=== PATIENT | female | born 1995 | race American Indian/Alaskan Native ===

== ENCOUNTER 2016-10-05 22:45 | Inpatient (IN) | payer MEDICAID, OTHER ==
--- NOTE | 2016-10-05 23:24 | ED PDOC ---
HPI: Psych/Substance Abuse Time Seen by Provider: 10/05/16 22:55 Chief Complaint (Nursing): Psychiatric Evaluation Chief Complaint (Provider): crisis eval History Per: Patient History/Exam Limitations: no limitations Onset/Duration Of Symptoms: Days Current Symptoms Are (Timing): Still Present Suicide/Self Injury Attempted (Context): Ingestion Additional History Per: Patient Additional Complaint(s): 21 y/o female no past medical history self-presents for crisis eval. Patient states she has been depressed for the last couple of months, tonight after having a fight with her mother she had suicidal thoughts with plan to take pills and drink alcohol. Patient states she took 6 "zquil" pills at 22:20, because she wanted to go to sleep. Denies homicidal ideations, hallucinations, acute medical complaints. Past Medical History Reviewed: Historical Data, Nursing Documentation, Vital Signs Vital Signs: Last Vital Signs Temp 99.5 F 10/05/16 22:49 Pulse 103 H 10/05/16 22:49 Resp 16 10/05/16 22:49 BP 126/91 H 10/05/16 22:49 Pulse Ox 100 10/05/16 22:49 - Medical History PMH: Anxiety, Depression - Family History Family History: States: No Known Family Hx - Allergies Allergies/Adverse Reactions: Allergies Allergy/AdvReac Type Severity Reaction Status Date / Time Penicillins Allergy RASH Verified 10/05/16 22:49 Review of Systems ROS Statement: Except As Marked, All Systems Reviewed And Found Negative Psych: Positive for: Depression, Suicidal ideation Physical Exam - Reviewed Nursing Documentation Reviewed: Yes Vital Signs Reviewed: Yes - Physical Exam Appears: Positive for: Well, Non-toxic, No Acute Distress Head Exam: Positive for: ATRAUMATIC, NORMAL INSPECTION, NORMOCEPHALIC Skin: Positive for: Normal Color Eye Exam: Positive for: Normal appearance, EOMI, PERRL ENT: Positive for: Normal ENT Inspection Cardiovascular/Chest: Positive for: Regular Rate, Rhythm Respiratory: Positive for: Normal Breath Sounds Gastrointestinal/Abdominal: Positive for: Normal Exam Back: Positive for: Normal Inspection Extremity: Positive for: Normal ROM Neurologic/Psych: Positive for: Alert, Oriented - Laboratory Results Result Diagrams: 10/05/16 23:40 10/05/16 23:40 - ECG ECG: Positive for: Viewed By Me (reviewed by ED attending) ECG Rhythm: Positive for: Sinus Rhythm O2 Sat by Pulse Oximetry: 100 - Progress ED Course And Treament: labs, urine, ekg poison control contacted by RN; recommends watching for tachycardia, dilated pupils, and skin flushing. 1:30 Patient sleeping; vitals stable. Denies acute complains upon awakening. PERRLA. Crisis eval ordered Medical Decision Making Medical Decision Making: Patient medically stable for psych admission. Disposition - Clinical Impression Clinical Impression: Depression - Patient ED Disposition Is Patient to be Admitted: Yes - Disposition Disposition Time: 02:24 Condition: STABLE
[2016-10-05 23:43] LABS: BASO # 0.1 K/uL (0.0-0.2); BASO % 0.9 % (0.0-2.0); EOS # 0.1 K/uL (0.0-0.7); EOS % 1.1 % (0.0-4.0); HEMATOCRIT 36.7 % (34.0-47.0); LYMPH # 2.2 K/uL (1.0-4.3); LYMPH % 25.4 % (20.0-40.0); MEAN CELL VOLUME 82.2 fl (81.0-99.0); MEAN CORPUSCULAR HEMOGLOBIN 27.3 pg (27.0-31.0); MEAN CORPUSCULAR HGB CONC 33.3 g/dL (33.0-37.0); MEAN PLATELET VOLUME 8.7 fl (7.2-11.7); MONO # 0.7 K/uL (0.0-0.8); MONO % 7.9 % (0.0-10.0); NEUT # 5.6 K/uL (1.8-7.0); NEUT % 64.7 % (50.0-75.0); RED CELL DISTRIBUTION WIDTH 13.7 % (11.5-14.5); WHITE BLOOD COUNT 8.7 K/uL (4.8-10.8)
[2016-10-05 23:54] LABS: ALB/GLOB RATIO 1.3 (1.0-2.1); ALCOHOL SERUM < 10 mg/dl (0-10); ALKALINE PHOSPHATASE 67 U/L (38-126); ALT/SGPT 29 U/L (9-52); AST/SGOT 19 U/L (14-36); BILIRUBIN,TOTAL 0.1 mg/dl (0.2-1.3); BLOOD UREA NITROGEN 17 mg/dl (7-17); CALCIUM 9.6 mg/dL (8.4-10.2); CARBON DIOXIDE 23 mmol/L (22-30); CHLORIDE 104 mmol/L (98-107); GFR AFRICAN-AMERICAN > 60; GLUCOSE,RANDOM 93 mg/dL (65-105); POTASSIUM 3.8 MMOL/L (3.6-5.0); SODIUM 137 mmol/l (132-148); TOTAL PROTEIN 7.5 G/DL (6.3-8.2)
[2016-10-05 23:57] LABS: RBC URINE < 1 /hpf (0-3); URINE BILIRUBIN NEGATIVE (NEGATIVE); URINE BLOOD NEGATIVE (NEGATIVE); URINE COLOR YELLOW (YELLOW); URINE GLUCOSE (UA) NEG (Normal); URINE KETONE TRACE mg/dL (NEGATIVE); URINE LEUKOCYTE ESTERASE NEG Leu/uL (Negative); URINE PROTEIN NEGATIVE (NEGATIVE); URINE UROBILINOGEN 0.2-1.0 mg/dL (0.2-1.0); WBC URINE < 1 /hpf (0-5)
[2016-10-06] MEDS ORDERED: Alum-Mag Hydrox-Simethicone Susp (30 mL) PO PRN (03:46)
[2016-10-06] MEDS ORDERED: DiphenhydrAMINE 50 mg/ml Inj IM PRN (03:46)
[2016-10-06] MEDS ORDERED: Magnesium Hydroxide Susp 30 ml UD PO PRN (03:46)
--- NOTE | 2016-10-06 04:29 | PCM.BM ---
<DeandreNathaniel - Last Filed: 10/06/16 04:27> Treatment Plan Problems - Problems identified on initial assessmt Altered sleep pattern Date Initiated: 10/06/16 Time Initiated: 04: Assessment reference: NA Status: Active Hopelessness/Helplessness Date Initiated: 10/06/16 Time Initiated: 04:28 Assessment reference: NA Status: Active Treatment assets and liabiliti Patient Assests: adapts well, cooperative, self-reliant, ADL independent, good support system Patient Liabilities: relationship conflicts - Milieu Protocol Maintain good personal hygiene: daily Encourage regular showers, daily Remind patient to perform daily oral care Maintain personal safety: every shift Educate patient to report safety concerns to staff, every shift Monitor environment for contraband/sharps Medication safety: Monitor for expected outcome, potential side effects: every shift, Assess barriers to learning: every shift, Assess readiness for medication education: every shift Family Contact Family contact: Patient agrees to contact Family contact name: Krystin Glover [phone] Discharge/Continuing Care - Education Needs Education Needs: Patient Medication, Patient Diagnosis/Disease Process, Patient Coping Skills - Discharge Discharge Criteria: Tolerates medication w/o severe side effects, Free of Suicidal thoughts, Normal sleep pattern Discharge to:: Home <Debbie Bagley - Last Filed: 10/06/16 16:05> Treatment assets and liabiliti Patient Assests: adapts well, cooperative, educated, motivated, self-reliant, ADL independent, physically healthy, good support system, negotiates basic needs , cognitively intact, good interpersonal skills Patient Liabilities: relationship conflicts Family Contact Family involvement: Family/SO is involved Family contact: Patient agrees to contact Family contact name: Luz(sister) Family contacted how many times per week?: 1 Family contact comment: Patient has restricted mother from attending visitation hours and is currently not agreeable to having mother involved in treatment. Patient agreeable to having older sister contact to discuss patients progress on 3NP and discharge planning. However, patient does not know sisters contact information. Building Inspector provided patient with contact number for typewriter operator automatic and [employer] so that patients sister can contact staff. - Goals for Treatment Patient goals for treatment: Patient reports ambivalence regarding medication management and aftercare referrals. Patient to be encouraged to attend groups for development of coping skills and improvement in insight. Psychoeducation provided regarding benefits of medication management and compliance with aftercare to reduce risk of future hospitalizations and ensure safety in the community. Patient reports wanting to improve sleep and is agreeable to outpatient therapy referrals. Discharge/Continuing Care - Education Needs Education Needs: Family Medication, Family Diagnosis/Disease Process, Family Coping Skills, Family Community resources, Family Aftercare Safety Plan, Patient Medication, Patient Diagnosis/Disease Process, Patient Community resources, Patient Aftercare Safety Plan - Discharge Discharge Criteria: Tolerates medication w/o severe side effects, Free of Suicidal thoughts, Normal sleep pattern <Armin Singh - Last Filed: 10/07/16 10:31>
[2016-10-06 09:39] LABS: T4 10.3 ug/dl (5.5-11.0)
[2016-10-06 09:52] LABS: THYROID STIMULATING HORMONE 1.15 mIU/ML (0.46-4.68)
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
--- NOTE | 2016-10-06 11:24 | CP.PCM.CON ---
History of Present Illness - History of Present Illness History of Present Illness: Reason for Consult: per hospital protocol CC: SI HPI: 21 F no past medical history admitted to psych for suicidal ideations. Patient states she no longer feels this way. No other complaints at this time. HD stable, NAD. ROS: per HPI, 12 systems reviewed and negative PMH: denies PSH: denies FH: denies SH: denies tobacco, ETOH, IVDU Meds: as below Allergies: PCN Vitals: reviewed and currently stable Exam: GEN: WDWN, alert, cooperative HEENT: NCAT, PERRL, EOMI NECK: supple, no JVD, no lymphadenopathy CARDIAC: +S1S2 RRR LUNG: CTAB No WRR ABD: SOFT NT ND BSX4 NO MASSES NO HSM EXT: +pedal pulses, equal strength NEURO: AAOx3 SKIN warm, dry PSYCH normal mood, normal affect Labs: 10/05/16 23:40 10/05/16 23:40 Active Medications: 10/06/16 03:46 Acetaminophen [Tylenol 325mg tab] 650 mg PO Q4 PRN Aluminum Hydroxide/Magnesium [Maalox Plus 30 ml] 30 ml PO Q4 PRN DiphenhydrAMINE [Benadryl] 50 mg IM Q6 PRN DiphenhydrAMINE [Benadryl] 50 mg PO HS PRN DiphenhydrAMINE [Benadryl] 50 mg PO Q6 PRN Haloperidol Lactate [Haldol] 5 mg IM Q4 PRN Haloperidol [Haldol] 5 mg PO Q4 PRN LORazepam [Ativan] 2 mg IM Q4 PRN LORazepam [Ativan] 2 mg PO Q4 PRN Magnesium Hydroxide [Milk Of Magnesia] 30 ml PO HS PRN 10/06/16 17:00 lamoTRIgine [LaMICtal] 25 mg PO BID Assessment and Plan: 21 F no past medical history admitted to psych for suicidal ideations. Patient states she no longer feels this way. No other complaints at this time. HD stable , NAD. DEPRESSION WITH SI management per psychiatry team Past Patient History - Past Social History Smoking Status: Never Smoked - CARDIAC Hx Cardiac Disorders: No Hx Hypertension: No - PULMONARY Hx Respiratory Disorders: No Hx Tuberculosis: No - NEUROLOGICAL HX Cerebrovascular Accident: No Hx Seizures: No - HEENT Hx HEENT Problems: No - RENAL Hx Chronic Kidney Disease: No - ENDOCRINE/METABOLIC Hx Endocrine Disorders: No - HEMATOLOGICAL/ONCOLOGICAL Hx Blood Disorders: No Hx Cancer: No Hx Human Immunodeficiency Virus (HIV): No - INTEGUMENTARY Hx Dermatological Problems: No - MUSCULOSKELETAL/RHEUMATOLOGICAL Hx Musculoskeletal Disorders: No - GASTROINTESTINAL Hx Gastrointestinal Disorders: No - GENITOURINARY/GYNECOLOGICAL Hx Genitourinary Disorders: No Hx Sexually Transmitted Disorders: No - PSYCHIATRIC Hx Substance Use: No - SURGICAL HISTORY Hx Surgeries: No - ANESTHESIA Hx Anesthesia: No Meds Allergies/Adverse Reactions: Allergies Allergy/AdvReac Type Severity Reaction Status Date / Time Penicillins Allergy RASH Verified 10/05/16 22:49 - Medications Medications: Current Medications Acetaminophen (Tylenol 325mg Tab) 650 mg PO Q4 PRN PRN Reason: for pain 4-7 Al Hydrox/Mg Hydrox/Simethicone (Maalox Plus 30 Ml) 30 ml PO Q4 PRN PRN Reason: Dyspepsia Diphenhydramine HCl (Benadryl) 50 mg IM Q6 PRN PRN Reason: Extrapyramidal S/S Unable PO Diphenhydramine HCl (Benadryl) 50 mg PO Q6 PRN PRN Reason: Extrapyramidal Symptoms Diphenhydramine HCl (Benadryl) 50 mg PO HS PRN PRN Reason: Sleep Haloperidol (Haldol) 5 mg PO Q4 PRN PRN Reason: Agitation Haloperidol Lactate (Haldol) 5 mg IM Q4 PRN PRN Reason: Agitation, Unable to Take PO Lamotrigine (Lamictal) 25 mg PO BID AXEL Lorazepam (Ativan) 2 mg IM Q4 PRN PRN Reason: Anxiety/Agitation,Unable PO Lorazepam (Ativan) 2 mg PO Q4 PRN PRN Reason: Anxiety/Agitation Magnesium Hydroxide (Milk Of Magnesia) 30 ml PO HS PRN PRN Reason: Constipation Results - Vital Signs Recent Vital Signs: Last Vital Signs Temp 97.6 F 10/06/16 09:14 Pulse 80 10/06/16 09:14 Resp 18 10/06/16 09:14 BP 136/83 10/06/16 09:14 Pulse Ox 100 10/06/16 03:25 - Labs Result Diagrams: 10/05/16 23:40 10/05/16 23:40 Labs: Laboratory Results - last 24 hr 10/06/16 08:00 Triglycerides 72 Cholesterol 161 LDL Cholesterol Direct 94 HDL Cholesterol 37 Thyroxine (T4) 10.3 TSH 3rd Generation 1.15
--- NOTE | 2016-10-06 16:04 | CARD ---
APPROVED REPORT EKG Measurement Heart [id number] <Conclusion> Normal sinus rhythm Possible Left atrial enlargement Borderline ECG
--- NOTE | 2016-10-06 16:06 | CARD ---
APPROVED REPORT EKG Measurement Heart [id number] <Conclusion> Normal sinus rhythm Possible Left atrial enlargement Borderline ECG
--- NOTE | 2016-10-07 12:22 | PCM.PYCHPN ---
Psychiatric Progress Note - Psychiatric Progress Note Patient seen today, length of contact: in treatment team Patient Chief Complaint: it feel ok Problems Identified/Issues Discussed: pt took lamictal. denies any medication side effects. pt is calm. she attends groups. pt had family visit yesterday. she is willing to stay the weekend and try medications. Medication Change: No Medical Record Reviewed: Yes Mental Status Examination - Cognitive Function Orientation: Person, Place, Situation, Time Memory: Intact, Impaired Attention: WNL Concentration: WNL Association: WNL Fund of Knowledge: WN Decription of patient's judgement and insights: fair - Mood Mood: Depressed - Affect Affect: Constricted - Speech Speech: Appropriate - Formal Thought Process Formal Thought Process: No Impairment - Suicidal Ideation Suicidal Ideation: No - Homicidal Ideation Homicidal Ideation: No Goal/Treatment Plan - Goal/Treatment Plan Need for Continued Stay: Remain at risks for inpatient hospitalization, Severe functional impairment Progress Toward Problem(s) and Goals/Treatment Plan: bipolar 2 disorder continue current treatment encourage participation in groups disposition planning Estimated Date of D/C: 10/10/16
--- NOTE | 2016-10-08 10:08 | PCM.PYCHPN ---
Psychiatric Progress Note - Psychiatric Progress Note Patient seen today, length of contact: in treatment team Patient Chief Complaint: pt has been less depressed and less anxious and denies suicidal ideation .no side effects and tolerating lamictal Medication Change: No Medical Record Reviewed: Yes Mental Status Examination - Cognitive Function Orientation: Person, Place, Situation, Time Memory: Intact, Impaired Attention: WNL Concentration: WNL Association: WNL Fund of Knowledge: WNL - Mood Mood: Depressed - Affect Affect: Constricted - Speech Speech: Appropriate - Formal Thought Process Formal Thought Process: No Impairment - Suicidal Ideation Suicidal Ideation: No - Homicidal Ideation Homicidal Ideation: No Goal/Treatment Plan - Goal/Treatment Plan Need for Continued Stay: Remain at risks for inpatient hospitalization, Severe functional impairment Progress Toward Problem(s) and Goals/Treatment Plan: will titrate lamictal to stabilize the pt and intiate d/c planning Estimated Date of D/C: 10/10/16
[2016-10-09 17:51] VITALS: O2SAT 99
--- NOTE | 2016-10-10 09:55 | PCM.PYCHDC ---
Mental Status Examination - Mental Status Examination Orientation: Person, Place, Situation, Time Memory: Intact Mood: Neutral Affect: Broad Speech: Appropriate Attention: WNL Concentration: WNL Association: WNL Fund of Knowledge: WNL Formal Thought Process: No Impairment Description of patient's judgement and insight: fair Psychotic Thoughts and Behaviors: pt denies any a/v hallucinations Suicidal Ideation: No Current Homicidal Ideation?: No Plan: pt is denying any suicidal or homicidal thoughts/plans or intent Discharge Summary - Discharge Note Reason for Hospitalization: pt reported feeling angry having passive suicidal thoughts Psychiatric History (includes Medical, Family, Personal Hx): pt with no previous psychiatric treatment besides outpt therapy Consultations:: List each consultation separately and include: 1. Reason for request. 2. Findings. 3. Follow-up Consultations: seen by the hospitalist Summary of Hospital Course include:: 1. Description of specific treatment plan utilized for patients during their course of treatmen. 2. Summarize the time- course for resolution of acute symptoms and/or regressed behaviors. 3. Describe issues identified and worked on during hospitalization. 4. Describe medication utilized. 5. Describe medical problems identified and treated. 6. Reassessment of suicide risk Summary of Hospital Course: pt is 21 yo female, no prior psychiatric admissions. reports she has become more depressed over the last few months. she reports she is now having more frequent suicidal thoughts. she isolates from friends, has trouble sleeping, low energy, poor concentration and easily tearful. she is reporting that she also has periods where her mood becomes elevated, she takes risks, spends money and is sexually promiscuous. she reports her mood is irritable during this time and that she has reduced need for sleep during this time, which last about a week. after her period of elevated mood, she "crashes" and feels more depressed. she has never been arrested or hospitalized or attempted suicide. pt is in college. she lives with her mother, who she states has untreated mood problems. she has an older sister. hospital course pt was admitted to [facility] and oriented to the unit. pt placed on routine safety protocols. pt was started on lamictal to target her mood symptoms. pt attended groups and was adherent to medications. she had good family visits. her mood stabilized and she was agreeable to outpatient therapy. at the time of discharge the patient was denying suicidal or homicidal thoughts/plans or intent. - Final Diagnosis (DSM 5) Condition upon Discharge: STABLE DSM 5: bipolar 2 disorder Disposition: HOME/ ROUTINE Follow-up Treatment Plan: follow up with aftercare as directed take medications as prescribed do not use alcohol, tobacco or other illicit substances call 911 if any suicidal or homicidal thoughts, plans or intent Prescriptions/Medication Reconciliation: lamoTRIgine [Lamictal] 25 mg PO BID #30 tab - Smoking Cessation Smoking Cessation Medication prescribed: No - Antipsychotic Medications Pt discharged on 2 or more routine antipsychotic medications: No
[2016-10-10 12:18] VITALS: BP 110/56; PULSE 98; RESP 20; TEMP 97.9
== END 2016-10-10 12:33 | disposition home or self-care (01) | DRG 430 ==
LOC: H.ER 22:45 → H.ERHOLD 10-06 02:12 → H.PSYCH 10-06 03:34
PROVIDERS: ADMIT Psychiatry & Neurology Psychiatry; ATTEND Psychiatry & Neurology Psychiatry
PROC: GZHZZZZ Group Psychotherapy (ICD-10-PCS; principal; 2016-10-06)
PROC: GZ58ZZZ Individual Psychotherapy, Cognitive-Behavioral (ICD-10-PCS; 2016-10-06)
DX: F31.81 Bipolar II disorder (principal); R45.851 Suicidal ideations; Z88.0 Allergy status to penicillin

== ENCOUNTER 2017-05-22 00:24 | Inpatient (IN) | payer BC, MEDICAID ==
[2017-05-22 02:19] LABS: BASO # 0.1 K/uL (0.0-0.2); BASO % 0.9 % (0.0-2.0); EOS # 0.1 K/uL (0.0-0.7); EOS % 1.4 % (0.0-4.0); HEMOGLOBIN 12.3 g/dL (12.0-16.0); LYMPH % 33.8 % (20.0-40.0); MEAN CELL VOLUME 82.7 fl (81.0-99.0); MEAN CORPUSCULAR HEMOGLOBIN 27.6 pg (27.0-31.0); MEAN CORPUSCULAR HGB CONC 33.4 g/dL (33.0-37.0); MEAN PLATELET VOLUME 9.1 fl (7.2-11.7); MONO # 0.7 K/uL (0.0-0.8); MONO % 8.2 % (0.0-10.0); NEUT # 4.9 K/uL (1.8-7.0); NEUT % 55.7 % (50.0-75.0); RBC 4.46 Mil/uL (3.80-5.20); RED CELL DISTRIBUTION WIDTH 14.3 % (11.5-14.5); WHITE BLOOD COUNT 8.8 K/uL (4.8-10.8)
[2017-05-22 02:26] LABS: ALB/GLOB RATIO 1.2 (1.0-2.1); ALBUMIN 4.3 g/dL (3.5-5.0); CALCIUM 9.6 mg/dL (8.4-10.2); GFR AFRICAN-AMERICAN > 60; GFR NON-AFRICAN AMERICAN > 60; SALICYLATE < 1.0 mg/dl
[2017-05-22 02:30] LABS: SQUAMOUS EPITHIAL < 1 /hpf (0-5); URINE BILIRUBIN NEGATIVE (NEGATIVE); URINE BLOOD NEGATIVE (NEGATIVE); URINE CLARITY CLEAR (Clear); URINE COLOR YELLOW (YELLOW); URINE GLUCOSE (UA) NEG (Normal); URINE LEUKOCYTE ESTERASE NEG Leu/uL (Negative); URINE PROTEIN NEGATIVE (NEGATIVE); URINE UROBILINOGEN 0.2-1.0 mg/dL (0.2-1.0)
[2017-05-22 02:32] LABS: ALT/SGPT 22 U/L (9-52); AST/SGOT 24 U/L (14-36); BLOOD UREA NITROGEN 16 mg/dl (7-17)
[2017-05-22 02:33] LABS: BARBITURATES, UR NEGATIVE (NEGATIVE); BENZODIAZEPINES, UR NEGATIVE (NEGATIVE); OPIATES, UR NEGATIVE (NEGATIVE); PHENCYCLIDINE, UR NEGATIVE (NEGATIVE)
--- NOTE | 2017-05-22 03:09 | ED PDOC ---
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 Patient reports that she takes Lamictal for anxiety and took double her usual dose 4 hours ago. Notes that 15 minutes later she still felt anxious and subsequently took half of the remaining bottle. Notes that 30 minutes after ingestion she still felt anxious and subsequently took the rest of the bottle. Confirms that in total she took 50 tablets of 25mg Lamictal. Denies intention to commit suicide. (-) headache, dizziness, chest pain, nausea, vomiting, abdominal pain, or other complaints. Other psychiatric symptoms: (-) hallucinations, (-) suicidal ideation, (-) homicidal ideation, (-) depression. PCP: Mariela Miranda Past Medical History Reviewed: Historical Data, Nursing Documentation, Vital Signs Vital Signs: Last Vital Signs Temp 97.2 F L 05/22/17 00:30 Pulse 96 H 05/22/17 00:30 Resp 18 05/22/17 00:30 BP 146/88 05/22/17 00:30 Pulse Ox 98 05/22/17 00:30 - Medical History PMH: Anxiety, Depression Denies: Diabetes, Hepatitis, HIV, HTN, Chronic Kidney Disease, Seizures, Sexually Transmitted Disease - Family History Family History: States: Unknown Family Hx - Home Medications Home Medications: Ambulatory Orders Medication Instructions Recorded lamoTRIgine [Lamictal] 25 mg PO BID #30 tab 10/07/16 - Allergies Allergies/Adverse Reactions: Allergies Allergy/AdvReac Type Severity Reaction Status Date / Time Penicillins Allergy RASH Verified 10/05/16 22:49 Review of Systems ROS Statement: Except As Marked, All Systems Reviewed And Found Negative Cardiovascular: Negative for: Chest Pain Gastrointestinal: Negative for: Nausea, Vomiting, Abdominal Pain Neurological: Negative for: Headache, Dizziness Psych: Positive for: Anxiety. Negative for: Depression, Psychosis, Suicidal ideation Physical Exam - Reviewed Nursing Documentation Reviewed: Yes Vital Signs Reviewed: Yes - Physical Exam Comments: GENERAL APPEARANCE: Patient is awake, alert, oriented x 3, in no acute distress. SKIN: Warm, dry; (-) cyanosis HEAD: (-) scalp swelling, (-) scalp tenderness. EYES: (-) conjunctival pallor, (-) scleral icterus, (-) nystagmus. ENMT: Mucous membranes moist. Airway patent: (-) stridor. NECK: (-) tenderness, (-) stiffness, (-) lymphadenopathy. CHEST AND RESPIRATORY: (-) rales, (-) rhonchi, (-) wheezes; breath sounds equal. ABDOMEN: Soft, (-) distention, (-) tenderness, (-) guarding. NEURO AND PSYCH: Mental status as above. Affect: Calm and cooperative. machine fitter: Intact. Pupils equal and reactive; EOMI; (-) facial asymmetry; tongue and uvula midline. Strength and DTRs symmetric. - Laboratory Results Result Diagrams: 05/22/17 02:14 05/22/17 02:14 - ECG O2 Sat by Pulse Oximetry: 98 (RA) Pulse Ox Interpretation: Normal Medical Decision Making Medical Decision Making: Plan : - IV - Labs - EKG - Consult to poison control - IVF On re-evaluation, patient is starting to c/o feeling drowsy. VSS. Denies any headache, dizziness, CP, SOB, N/V, abdominal pain. Case d/w poison control at 0135, spoke to Derek, recommends labs, EKG and broadcast engineer. Recommends no activated charcoal at this time as the patient is starting to c/o drowsiness and may aspirate. Case d/w ER MD, agrees with current plan of care, also does not recommend activated charcoal as the patient has presented to the ER 3 hours after ingestion of lamictal. EKG : NSR at 77 bpm, normal QRS and DC interval, as read by ER MD and PA. Lab results reviewed and are wnl. On re-evaluation, patient is sleeping, but is arousable. Reports no other complaints, just feels sleepy. VSS. P 78 O2sat 98%RA. Patient is not tachycardic. Repeat neuro exam shows no focal findings. Diagnostic results d/w the patient in great detail. Diagnosis of overdose and need for inpatient admission d/w the patient. Based on history, exam and diagnostic results, plan will be for inpatient admission in the ICU. Case d/w Dr. Martinez, agrees with plan for observation to the ICU for now. Patient states she fully agrees with and understands further plan of care. I have given the patient opportunity to ask any additional questions. Disposition - Clinical Impression Clinical Impression: Overdose - Patient ED Disposition Is Patient to be Admitted: Yes (admit to ICU) Doctor Will See Patient In The: ED Counseled Patient/Family Regarding: Studies Performed, Diagnosis - Disposition Disposition Time: 02:45 Condition: STABLE - PA / QLIKVIEW DEVELOPER / Resident Statement MD/DO has reviewed & agrees with the documentation as recorded.
--- NOTE | 2017-05-22 03:14 | CP.PCM.HP ---
History of Present Illness - History of Present Illness History of Present Illness: PMD: Mariela Miranda MD Chief complaint: Overdose on Medication The patient was seen and examined in the ED HPI: 21 years old female with hx of Anxiety and Depression, last admitted to the Psychiatric Unit on 10/06/16 with a suicide attempt, ingesting tablets. She is now brought to the ED 2hrs after reporting that she was feeling anxious and took a total of approximately 50 tablets of Lamictal 25mg each. She is awake and alert, referring feeling tired, with mild headache, dizziness, Diarrhea with abdominal pains started here in the ED, no nausea, vomits, palpitations, SOB dysuria nor urinary frequencies. PMH: Anxiety; Depression; Suicide Attempts with tablets ingestion PSH: Denies SH: Marijuana use. Never smoked; no Alcohol use, Live with family FH: States; No known family hx Allergies: Penicillin causes rash Medication: Reviewed Present on Admission - Present on Admission Any Indicators Present on Admission: No History of DVT/PE: No History of Uncontrolled Diabetes: No Urinary Catheter: No Decubitus Ulcer Present: No Review of Systems - Constitutional Constitutional: Headache. absent: Anorexia, Chills, Fatigue, Fever, Frequent Falls - EENT Eyes: absent: Diplopia, Floaters, Requires Corrective Lenses, Spots in Vision Ears: absent: Decreased Hearing, Ear Discharge, Ear Pain, Tinnitus Nose/Mouth/Throat: absent: Epistaxis, Nasal Congestion, Nasal Discharge, Sinus Pain, Sinus Pressure - Cardiovascular Cardiovascular: absent: Chest Pain, Dyspnea, Edema, Palpitations - Respiratory Respiratory: absent: Cough, Dyspnea, Wheezing, Chest Congestion - Gastrointestinal Gastrointestinal: Abdominal Pain, Diarrhea. absent: Constipation Additional comments: Generalizede abdominal pain. - Genitourinary Genitourinary: absent: Dysuria, Flank Pain, Hematuria, Urinary Frequency - Musculoskeletal Musculoskeletal: absent: Arthralgias, Joint Swelling, Muscle Cramps, Myalgias - Integumentary Integumentary: absent: Pruritus, Rash, Skin Ulcer, Sores, Striae, Swelling - Neurological Neurological: absent: Confusion, Focal Weakness, Weakness Additional comments: lightheadedness - Psychiatric Psychiatric: Anxiety, Depression. absent: Panic Attacks - Endocrine Endocrine: absent: Palpitations, Polydipsia, Polyphagia, Polyuria - Hematologic/Lymphatic Hematologic: absent: Easy Bleeding, Easy Bruising Past Patient History - Past Social History Smoking Status: Never Smoked Chewing Tobacco Use: No Cigar Use: No Alcohol: None Drugs: Cannabis Home Situation {Lives}: With Family - CARDIAC Hx Cardiac Disorders: No Hx Hypertension: No - PULMONARY Hx Respiratory Disorders: No Hx Tuberculosis: No - NEUROLOGICAL Hx Neurological Disorder: No Hx Seizures: No - HEENT Hx HEENT Problems: No - RENAL Hx Chronic Kidney Disease: No - ENDOCRINE/METABOLIC Hx Endocrine Disorders: No - HEMATOLOGICAL/ONCOLOGICAL Hx Blood Disorders: No Hx Human Immunodeficiency Virus (HIV): No - INTEGUMENTARY Hx Dermatological Problems: No - MUSCULOSKELETAL/RHEUMATOLOGICAL Hx Musculoskeletal Disorders: No - GASTROINTESTINAL Hx Gastrointestinal Disorders: No - GENITOURINARY/GYNECOLOGICAL Hx Genitourinary Disorders: No Hx Sexually Transmitted Disorders: No - PSYCHIATRIC Hx Anxiety: Yes Hx Depression: Yes - SURGICAL HISTORY Hx Surgeries: No - ANESTHESIA Hx Anesthesia: No Meds Allergies/Adverse Reactions: Allergies Allergy/AdvReac Type Severity Reaction Status Date / Time Penicillins Allergy RASH Verified 10/05/16 22:49 Physical Exam - Constitutional Appears: No Acute Distress - Head Exam Head Exam: ATRAUMATIC, NORMAL INSPECTION, NORMOCEPHALIC - Eye Exam Eye Exam: EOMI, Normal appearance Pupil Exam: NORMAL ACCOMODATION, PERRL - ENT Exam ENT Exam: Mucous Membranes Moist, Normal Exam, Normal External Ear Exam, Normal Oropharynx - Neck Exam Neck exam: Positive for: Full Rom - Respiratory Exam Respiratory Exam: Clear to Auscultation Bilateral. absent: Rales, Rhonchi, Wheezes - Cardiovascular Exam Cardiovascular Exam: REGULAR RHYTHM, JVD, +S1, +S2. absent: Gallop, RRR - GI/Abdominal Exam GI & Abdominal Exam: Normal Bowel Sounds, Soft Additional comments: Full, Soft, +ve bowel sounds, Tender at whole abdomen more severe at the LLA. No rebound, no guarding. - Rectal Exam Rectal Exam: Deferred - Extremities Exam Extremities exam: Positive for: full ROM, normal inspection. Negative for: calf tenderness, joint swelling, pedal edema - Back Exam Back exam: NORMAL INSPECTION. absent: CVA tenderness (L), CVA tenderness (R) - Neurological Exam Neurological exam: Alert, CN II-XII Intact, Oriented x3, Reflexes Normal - Psychiatric Exam Psychiatric exam: Normal Affect, Normal Mood - Skin Skin Exam: Dry, Normal Color, Pallor, Warm Results - Vital Signs Recent Vital Signs: Last Vital Signs Temp 97.2 F L 05/22/17 00:30 Pulse 96 H 05/22/17 00:30 Resp 18 05/22/17 00:30 BP 146/88 05/22/17 00:30 Pulse Ox 98 05/22/17 03:09 - Labs Result Diagrams: 05/22/17 02:14 05/22/17 02:14 Labs: Laboratory Results - last 24 hr 05/22/17 05/22/17 05/22/17 02:14 02:14 02:14 WBC 8.8 RBC 4.46 Hgb 12.3 Hct 36.9 MCV 82.7 MCH 27.6 MCHC 33.4 RDW 14.3 Plt Count 285 MPV 9.1 Neut % (Auto) 55.7 Lymph % (Auto) 33.8 [place] % (Auto) 8.2 Eos % (Auto) 1.4 Baso % (Auto) 0.9 Neut # (Auto) 4.9 Lymph # (Auto) 3.0 [place] # (Auto) 0.7 Eos # (Auto) 0.1 Baso # (Auto) 0.1 Sodium 144 Potassium 4.0 Chloride 104 Carbon Dioxide 20 L Anion Gap 24 H BUN 16 Creatinine 0.7 Est GFR ( Amer) > 60 Est GFR (Non-Af Amer) > 60 Random Glucose 101 Calcium 9.6 Total Bilirubin 0.4 AST 24 ALT 22 Alkaline Phosphatase 66 Total Protein 8.0 Albumin 4.3 Globulin 3.7 Albumin/Globulin Ratio 1.2 Urine Color Urine Clarity Urine pH Ur Specific [place] Urine Protein Urine Glucose (UA) Urine Ketones Urine Blood Urine Nitrate Urine Bilirubin Urine Urobilinogen Ur Leukocyte Esterase Urine RBC (Auto) Urine Microscopic WBC Ur Squamous Epith Cells Salicylates < 1.0 Urine Opiates Screen Urine Methadone Screen Acetaminophen 12.0 Ur Barbiturates Screen Ur Phencyclidine Scrn Ur Amphetamines Screen U Benzodiazepines Scrn U Oth Cocaine Metabols U Cannabinoids Screen Alcohol, Quantitative < 10 05/22/17 05/22/17 02:14 02:14 WBC RBC Hgb Hct MCV MCH MCHC RDW Plt Count MPV Neut % (Auto) Lymph % (Auto) [place] % (Auto) Eos % (Auto) Baso % (Auto) Neut # (Auto) Lymph # (Auto) [place] # (Auto) Eos # (Auto) Baso # (Auto) Sodium Potassium Chloride Carbon Dioxide Anion Gap BUN Creatinine Est GFR ( Amer) Est GFR (Non-Af Amer) Random Glucose Calcium Total Bilirubin AST ALT Alkaline Phosphatase Total Protein Albumin Globulin Albumin/Globulin Ratio Urine Color Yellow Urine Clarity Clear Urine pH 5.0 Ur Specific [place] 1.030 Urine Protein Negative Urine Glucose (UA) Neg Urine Ketones Negative Urine Blood Negative Urine Nitrate Negative Urine Bilirubin Negative Urine Urobilinogen 0.2-1.0 Ur Leukocyte Esterase Neg Urine RBC (Auto) 3 Urine Microscopic WBC < 1 Ur Squamous Epith Cells < 1 Salicylates Urine Opiates Screen Negative Urine Methadone Screen Negative Acetaminophen Ur Barbiturates Screen Negative Ur Phencyclidine Scrn Negative Ur Amphetamines Screen Negative U Benzodiazepines Scrn Negative U Oth Cocaine Metabols Negative U Cannabinoids Screen Positive H Alcohol, Quantitative - EKG Data EKG comments: NSR 77/min Assessment & Plan - Assessment and Plan (Free Text) Assessment: #. Drug overdose on lamictal #. Hx of Anxiety and Depression Plan: 21 years old female with hx of Anxiety and Depression, brought to the ED 2hrs after reporting that she was feeling anxious and took a total of approximately 50 tablets of Lamictal 25mg each. She is awake and alert, with mild headache, dizziness, Diarrhea with abdominal pains started here in the ED. #. Drug overdose on lamictal in a Suicidal attempt - 1:1 Observation - Consult Dr Amador - Cardiac Monitoring - IV FluidsD5/0.45NS #. Hx of Anxiety and Depression - Psychiatry will be following #. Stress and gastric ulcer prohylaxis with Pepcid #. DVT prophylaxis with SCD and Lovenox #. Code Status: Full - Date & Time Date: 05/22/17 Time: 03:14
[2017-05-22] MEDS: Dextrose 5%/0.45% NS 1,000 ML IV SCH ×3 (04:03→21:22)
[2017-05-22] MEDS: Enoxaparin 40 mg Syringe SC SCH (09:58)
--- NOTE | 2017-05-22 11:15 | CP.PCM.CON ---
History of Present Illness - History of Present Illness History of Present Illness: Psychiatry consult note CC: "I'm depressed." HPI: 21 years old female with hx of Bipolar disorder, last admitted to the Psychiatric Unit on 10/06/16 with a suicide attempt, now presents with suicide attempt by overdose of 50 Lamictal tablets (25 mg). She reports that she continues to have active suicidal ideation w/ plan to jump in river. She continues to feel depressed, anxious, hopeless. PMH: No acute medical issues PPH: H/o past psychiatric hospitalization on 3NP in September 2016. Currently being treated by an outpatient psychiatrist (she does not recall the name). PSH: Denies SH: Marijuana use. Never smoked; no Alcohol use, Live with family FH: States; No known family hx Allergies: Penicillin causes rash MSE: A + O x 3, calm, cooperative, good eye contact, speech normal, mood "depressed", affect- smiles and laughs inappropriately, thought process- linear/ coherent, thought content- no delusions, no AH/VH, +SI w/ plan, No HI, Fair I/ poor J Impression: 21 years old female with hx of Bipolar Disorder, presents s/p suicide attempt by OD on Lamictal, continues to have suicidal ideation to jump in a river. -Patient needs acute inpatient psychiatric admission for treatment and safety when she is medically stable; patient is currently agreeable to voluntary psychiatric admission -Continue 1:1 for safety Past Patient History - Past Social History Smoking Status: Never Smoked Chewing Tobacco Use: No Cigar Use: No Alcohol: None Drugs: Cannabis Home Situation {Lives}: With Family - CARDIAC Hx Hypertension: No - PULMONARY Hx Respiratory Disorders: No Hx Tuberculosis: No - NEUROLOGICAL Hx Seizures: No - HEENT Hx HEENT Problems: No - RENAL Hx Chronic Kidney Disease: No - ENDOCRINE/METABOLIC Hx Endocrine Disorders: No - HEMATOLOGICAL/ONCOLOGICAL Hx Human Immunodeficiency Virus (HIV): No - INTEGUMENTARY Hx Dermatological Problems: No - MUSCULOSKELETAL/RHEUMATOLOGICAL Hx Musculoskeletal Disorders: No - GASTROINTESTINAL Hx Gastrointestinal Disorders: No - GENITOURINARY/GYNECOLOGICAL Hx Sexually Transmitted Disorders: No - PSYCHIATRIC Hx Anxiety: Yes Hx Depression: Yes - SURGICAL HISTORY Hx Surgeries: No - ANESTHESIA Hx Anesthesia: No Meds Allergies/Adverse Reactions: Allergies Allergy/AdvReac Type Severity Reaction Status Date / Time Penicillins Allergy RASH Verified 10/05/16 22:49 - Medications Medications: Current Medications Enoxaparin Sodium (Lovenox) 40 mg SC DAILY [facility] PRN Reason: Protocol Last Admin: 05/22/17 09:58 Dose: 40 mg Famotidine (Pepcid) 20 mg IVP DAILY [facility] Last Admin: 05/22/17 10:41 Dose: 20 mg Dextrose/Sodium Chloride (Dextrose 5%/0.45% Ns 1000 Ml) 1,000 mls @ 125 mls/hr IV .Q8H [facility] Stop: 05/23/17 03:57 Last Admin: 05/22/17 04:03 Dose: 125 mls/hr Results - Vital Signs Recent Vital Signs: Last Vital Signs Temp 97.5 F L 05/22/17 06:37 Pulse 75 05/22/17 06:37 Resp 16 05/22/17 06:37 BP 122/86 05/22/17 06:37 Pulse Ox 100 05/22/17 06:37 - Labs Result Diagrams: 05/22/17 02:14 05/22/17 02:14 Labs: Laboratory Results - last 24 hr 05/22/17 05/22/17 05/22/17 02:14 02:14 02:14 WBC 8.8 RBC 4.46 Hgb 12.3 Hct 36.9 MCV 82.7 MCH 27.6 MCHC 33.4 RDW 14.3 Plt Count 285 MPV 9.1 Neut % (Auto) 55.7 Lymph % (Auto) 33.8 [place] % (Auto) 8.2 Eos % (Auto) 1.4 Baso % (Auto) 0.9 Neut # (Auto) 4.9 Lymph # (Auto) 3.0 [place] # (Auto) 0.7 Eos # (Auto) 0.1 Baso # (Auto) 0.1 Sodium 144 Potassium 4.0 Chloride 104 Carbon Dioxide 20 L Anion Gap 24 H BUN 16 Creatinine 0.7 Est GFR ( Amer) > 60 Est GFR (Non-Af Amer) > 60 Random Glucose 101 Calcium 9.6 Total Bilirubin 0.4 AST 24 ALT 22 Alkaline Phosphatase 66 Total Protein 8.0 Albumin 4.3 Globulin 3.7 Albumin/Globulin Ratio 1.2 Urine Color Urine Clarity Urine pH Ur Specific [place] Urine Protein Urine Glucose (UA) Urine Ketones Urine Blood Urine Nitrate Urine Bilirubin Urine Urobilinogen Ur Leukocyte Esterase Urine RBC (Auto) Urine Microscopic WBC Ur Squamous Epith Cells Salicylates < 1.0 Urine Opiates Screen Urine Methadone Screen Acetaminophen 12.0 Ur Barbiturates Screen Ur Phencyclidine Scrn Ur Amphetamines Screen U Benzodiazepines Scrn U Oth Cocaine Metabols U Cannabinoids Screen Alcohol, Quantitative < 10 05/22/17 05/22/17 02:14 02:14 WBC RBC Hgb Hct MCV MCH MCHC RDW Plt Count MPV Neut % (Auto) Lymph % (Auto) [place] % (Auto) Eos % (Auto) Baso % (Auto) Neut # (Auto) Lymph # (Auto) [place] # (Auto) Eos # (Auto) Baso # (Auto) Sodium Potassium Chloride Carbon Dioxide Anion Gap BUN Creatinine Est GFR ( Amer) Est GFR (Non-Af Amer) Random Glucose Calcium Total Bilirubin AST ALT Alkaline Phosphatase Total Protein Albumin Globulin Albumin/Globulin Ratio Urine Color Yellow Urine Clarity Clear Urine pH 5.0 Ur Specific [place] 1.030 Urine Protein Negative Urine Glucose (UA) Neg Urine Ketones Negative Urine Blood Negative Urine Nitrate Negative Urine Bilirubin Negative Urine Urobilinogen 0.2-1.0 Ur Leukocyte Esterase Neg Urine RBC (Auto) 3 Urine Microscopic WBC < 1 Ur Squamous Epith Cells < 1 Salicylates Urine Opiates Screen Negative Urine Methadone Screen Negative Acetaminophen Ur Barbiturates Screen Negative Ur Phencyclidine Scrn Negative Ur Amphetamines Screen Negative U Benzodiazepines Scrn Negative U Oth Cocaine Metabols Negative U Cannabinoids Screen Positive H Alcohol, Quantitative
[2017-05-22 13:35] LABS: ALB/GLOB RATIO 1.1 (1.0-2.1); ALBUMIN 3.9 g/dL (3.5-5.0); ALT/SGPT 22 U/L (9-52); AST/SGOT 14 U/L (14-36); BLOOD UREA NITROGEN 8 mg/dl (7-17); CALCIUM 9.3 mg/dL (8.4-10.2); GFR AFRICAN-AMERICAN > 60; GFR NON-AFRICAN AMERICAN > 60
[2017-05-23] MEDS: Dextrose 5%/0.45% NS 1,000 ML IV SCH (03:57)
--- NOTE | 2017-05-23 05:33 | PN ---
CRITICAL CARE PROGRESS NOTE DATE: 05/22/2017 LOCATION: The patient in ICU, bed 421 TIME SPENT: 35 minutes. SUBJECTIVE: The patient is seen and evaluated at the bedside. Past medical, surgical, family, and social history reviewed. A 21-year-old female with a history of anxiety, depression, and suicide attempts in the past. Lives at home with mom and her girlfriend, presented to emergency room after reportedly consumed bottle full of Lamictal around approximately 50 tablets, tablets were prescribed by hospital psychiatrist. They attempted drug overdose related to depression and was prescribed Lamictal. However, the patient was noncompliant and did not take pills from November up until a week ago. The patient was prescribed Lamictal by the psychiatrist as she felt anxious and depressed associated with headache. She took 2 tablets first and then followed by 20 tablets and then followed by remained tablets in the bottle estimated approximately 50 tablets. In ER, the patient was noted to be drowsy, lethargic, but hemodynamically stable. Telemetry with sinus rhythm and admitted to ICU for further observation of the overdose, seen by psychiatrist, and pending involuntary admission to psychiatric floor. PAST MEDICAL HISTORY: As noted. PAST SURGICAL HISTORY: As noted. SOCIAL HISTORY: Marijuana use. Does not smoke or drink alcohol. Lives with the family and her girlfriend, and girlfriend does not use any recreational drugs. Mom drinks alcohol almost everyday. FAMILY HISTORY: Unremarkable. ALLERGIES: ALLERGY TO PENICILLIN WITH RASH. CURRENT MEDICATIONS: Reviewed include Lovenox 40 subcutaneously daily, Pepcid 20 IV daily, and D5 half normal at 125 mL/hour. PHYSICAL EXAMINATION: VITAL SIGNS: Temperature 98.2, heart rate 83 and regular, respiratory rate 23, thoracoabdominal, blood pressure 146/33, and oxygen saturation 100%. Intake and output to be noted. HEAD, EYES, EARS, NOSE AND THROAT: Pupils reactive. Conjunctivae pink. Sclerae are white. NECK: Supple. No nystagmus. Conjunctivae pink. Trachea is central. CHEST: Bilateral breath sounds clear to auscultation. HEART: Rhythm regular. S1 and S2 normal intensity. No S3, S4, or gallop. No audible murmur. ABDOMEN: Bowel sounds present. Soft. Liver and spleen not palpable. Bladder not distended. EXTREMITIES: No clubbing, cyanosis, or edema. NEUROLOGIC: Alert and oriented to name, place and time. No motor deficit. No cranial nerve deficit. No sensory impairment. Patellar reflex 2+ plantar flexor. LABORATORY DATA: WBC 8.8, hemoglobin 12.3, hematocrit of 36.9, and platelet count 285. Neutrophils 55.7, lymphocytes 33.2, and monocytes 8.2. SMA-7; sodium 142, potassium 3.6, chloride 105, CO2 of 24, blood urea nitrogen 8, and creatinine 0.7. Random glucose 104, calcium 9.3, total bilirubin 0.3, AST 14, ALT 22, alkaline phosphatase 62, total protein 7.4, and albumin 3.9. Urinalysis; leukocyte esterase negative, WBC less than 01, and epithelial cells less than 1. Urine drug screen; cannabinoids positive. Alcohol level less than 10. EKG; sinus rhythm, normal electrical axis. No ST-T changes. 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 Remains hemodynamically stable, oriented to name, place and time. Has insight into underlying depression/anxiety/bipolar disorder and would like to get treated as an inpatient. We will monitor for any hemodynamic instability, cardiac arrhythmia over the next 24 hours. If the patient remains clinically stable, can be transferred to the psychiatric floor. Continue 1:1 observation, IV hydration, deep venous thrombosis and gastrointestinal prophylaxis. Olvin Espino MD
[2017-05-23 05:41] LABS: HEMOGLOBIN 11.5 g/dL (12.0-16.0); MEAN CELL VOLUME 83.1 fl (81.0-99.0); MEAN CORPUSCULAR HEMOGLOBIN 27.7 pg (27.0-31.0); MEAN CORPUSCULAR HGB CONC 33.3 g/dL (33.0-37.0); RBC 4.14 Mil/uL (3.80-5.20); RED CELL DISTRIBUTION WIDTH 14.2 % (11.5-14.5)
[2017-05-23 06:06] LABS: BLOOD UREA NITROGEN 6 mg/dl (7-17); CALCIUM 8.8 mg/dL (8.4-10.2); GFR AFRICAN-AMERICAN > 60; GFR NON-AFRICAN AMERICAN > 60
[2017-05-23] MEDS ORDERED: Potassium Chloride 20 mEq ER Tab PO ONE (07:30)
[2017-05-23 08:09] VITALS: BP 145/89; PULSE 74; RESP 30; TEMP 98.5; O2SAT 100
[2017-05-23] MEDS: Enoxaparin 40 mg Syringe SC SCH (08:54)
--- NOTE | 2017-05-23 09:03 | CP.PCM.DIS ---
Provider - Provider Date of Admission: 05/22/17 03:09 Attending physician: Maciel Martinez Primary care physician: Mariela Miranda MD Time Spent in preparation of Discharge (in minutes): 30 Diagnosis - Discharge Diagnosis (1) Depression Status: Acute (2) Overdose Status: Acute Hospital Course - Lab Results Lab Results: Most Recent Lab Values WBC 6.0 K/uL (4.8-10.8) 05/23/17 04:20 RBC 4.14 Mil/uL (3.80-5.20) 05/23/17 04:20 Hgb 11.5 g/dL (12.0-16.0) L 05/23/17 04:20 Hct 34.4 % (34.0-47.0) 05/23/17 04:20 MCV 83.1 fl (81.0-99.0) 05/23/17 04:20 MCH 27.7 pg (27.0-31.0) 05/23/17 04:20 MCHC 33.3 g/dL (33.0-37.0) 05/23/17 04:20 RDW 14.2 % (11.5-14.5) 05/23/17 04:20 Plt Count 256 K/uL (130-400) 05/23/17 04:20 MPV 9.1 fl (7.2-11.7) 05/22/17 02:14 Neut % (Auto) 55.7 % (50.0-75.0) 05/22/17 02:14 Lymph % (Auto) 33.8 % (20.0-40.0) 05/22/17 02:14 Hettinger % (Auto) 8.2 % (0.0-10.0) 05/22/17 02:14 Eos % (Auto) 1.4 % (0.0-4.0) 05/22/17 02:14 Baso % (Auto) 0.9 % (0.0-2.0) 05/22/17 02:14 Neut # (Auto) 4.9 K/uL (1.8-7.0) 05/22/17 02:14 Lymph # (Auto) 3.0 K/uL (1.0-4.3) 05/22/17 02:14 Hettinger # (Auto) 0.7 K/uL (0.0-0.8) 05/22/17 02:14 Eos # (Auto) 0.1 K/uL (0.0-0.7) 05/22/17 02:14 Baso # (Auto) 0.1 K/uL (0.0-0.2) 05/22/17 02:14 Sodium 142 mmol/l (132-148) 05/23/17 04:20 Potassium 3.5 MMOL/L (3.6-5.0) L 05/23/17 04:20 Chloride 105 mmol/L (98-107) 05/23/17 04:20 Carbon Dioxide 23 mmol/L (22-30) 05/23/17 04:20 Anion Gap 18 (10-20) 05/23/17 04:20 BUN 6 mg/dl (7-17) L 05/23/17 04:20 Creatinine 0.8 mg/dl (0.7-1.2) 05/23/17 04:20 Est GFR ( Amer) > 60 05/23/17 04:20 Est GFR (Non-Af Amer) > 60 05/23/17 04:20 Random Glucose 97 mg/dL (65-105) 05/23/17 04:20 Calcium 8.8 mg/dL (8.4-10.2) 05/23/17 04:20 Total Bilirubin 0.3 mg/dl (0.2-1.3) 05/22/17 12:30 AST 14 U/L (14-36) D 05/22/17 12:30 ALT 22 U/L (9-52) 05/22/17 12:30 Alkaline Phosphatase 62 U/L (38-126) 05/22/17 12:30 Total Protein 7.4 G/DL (6.3-8.2) 05/22/17 12:30 Albumin 3.9 g/dL (3.5-5.0) 05/22/17 12:30 Globulin 3.5 gm/dL (2.2-3.9) 05/22/17 12:30 Albumin/Globulin Ratio 1.1 (1.0-2.1) 05/22/17 12:30 Urine Color Yellow (YELLOW) 05/22/17 02:14 Urine Clarity Clear (Clear) 05/22/17 02:14 Urine pH 5.0 (5.0-8.0) 05/22/17 02:14 Ur Specific Sieper 1.030 (1.003-1.030) 05/22/17 02:14 Urine Protein Negative mg/dL (NEGATIVE) 05/22/17 02:14 Urine Glucose (UA) Neg mg/dL (Normal) 05/22/17 02:14 Urine Ketones Negative mg/dL (NEGATIVE) 05/22/17 02:14 Urine Blood Negative (NEGATIVE) 05/22/17 02:14 Urine Nitrate Negative (NEGATIVE) 05/22/17 02:14 Urine Bilirubin Negative (NEGATIVE) 05/22/17 02:14 Urine Urobilinogen 0.2-1.0 mg/dL (0.2-1.0) 05/22/17 02:14 Ur Leukocyte Esterase Neg Padma/uL (Negative) 05/22/17 02:14 Urine RBC (Auto) 3 /hpf (0-3) 05/22/17 02:14 Urine Microscopic WBC < 1 /hpf (0-5) 05/22/17 02:14 Ur Squamous Epith Cells < 1 /hpf (0-5) 05/22/17 02:14 Salicylates < 1.0 mg/dl 05/22/17 02:14 Urine Opiates Screen Negative (NEGATIVE) 05/22/17 02:14 Urine Methadone Screen Negative (NEGATIVE) 05/22/17 02:14 Acetaminophen 12.0 ug/ml (10.0-30.0) 05/22/17 02:14 Ur Barbiturates Screen Negative (NEGATIVE) 05/22/17 02:14 Ur Phencyclidine Scrn Negative (NEGATIVE) 05/22/17 02:14 Ur Amphetamines Screen Negative (NEGATIVE) 05/22/17 02:14 U Benzodiazepines Scrn Negative (NEGATIVE) 05/22/17 02:14 U Oth Cocaine Metabols Negative (NEGATIVE) 05/22/17 02:14 U Cannabinoids Screen Positive (NEGATIVE) H 05/22/17 02:14 Alcohol, Quantitative < 10 mg/dl (0-10) 05/22/17 02:14 - Hospital Course Hospital Course: 21 years old female with hx of Anxiety and Depression, brought to the ED 2hrs after reporting that she was feeling anxious and took a total of approximately 50 tablets of Lamictal 25mg each. She is awake and alert, with mild headache, dizziness, Diarrhea with abdominal pains started here in the ED. Drug overdose on lamictal in a Suicidal attempt - 1:1 Observation - Consult Dr Amador - for discharge to psych admission Medically stable for discharge. - Cardiac Monitoring - IV FluidsD5/0.45NS Hx of Anxiety and Depression - Psychiatry will be following Discharge Exam - Head Exam Head Exam: ATRAUMATIC, NORMAL INSPECTION, NORMOCEPHALIC - Eye Exam Eye Exam: EOMI, Normal appearance, PERRL Pupil Exam: NORMAL ACCOMODATION - ENT Exam ENT Exam: Mucous Membranes Moist, Normal Oropharynx - Neck Exam Neck exam: Full Rom, Normal Inspection - Respiratory Exam Respiratory Exam: Clear to PA & Lateral, NORMAL BREATHING PATTERN - Cardiovascular Exam Cardiovascular Exam: RRR, +S1, +S2 - GI/Abdominal Exam GI & Abdominal Exam: Normal Bowel Sounds, Soft, Unremarkable. absent: Mass, Tenderness - Extremities Exam Extremities exam: normal capillary refill, pedal pulses present - Back Exam Back exam: absent: CVA tenderness (L), CVA tenderness (R) - Neurological Exam Neurological exam: Alert, Oriented x3 - Psychiatric Exam Psychiatric exam: Normal Affect, Normal Mood Discharge Plan - Follow Up Plan Condition: STABLE Disposition: DISCHARGE TO PSYCH HOSPITAL Referrals: Mariela Miranda MD [Primary Care Provider] -
--- NOTE | 2017-05-23 11:47 | CARD ---
APPROVED REPORT EKG Measurement Heart [id number] MA [id number] <Conclusion> Normal sinus rhythm with sinus arrhythmia Possible Left atrial enlargement Borderline ECG
--- NOTE | 2017-05-23 11:51 | CARD ---
APPROVED REPORT EKG Measurement Heart [id number] [place] [id number] <Conclusion> Normal sinus rhythm Normal ECG
--- NOTE | 2017-05-24 05:54 | PN ---
DATE: 05/23/2017 CRITICAL CARE PROGRESS NOTE SUBJECTIVE: The patient is in ICU nirmal 421. Time spent 25 minutes. The patient is seen and evaluated at the bedside. Past medical, surgical, family and social history reviewed. A 21-year-old female with history significant for bipolar disorder with previous suicide attempts, admitted with drug overdose on Lamictal 50 tablets of 25 mg. Overnight hemodynamically stable. Telemetry sinus rhythm normotensive and afebrile. This morning alert, awake, and follows commands appropriate. Denies headache, shortness of breath, chest pain, or palpitation. No abdominal discomfort. No diarrhea. No dysuria. PHYSICAL EXAMINATION: VITAL SIGNS: Temperature of 98.5, heart rate of 74, blood pressure of 145/89, respiratory rate of 18 to 22, thoracoabdominal and oxygen saturation of 100% on room air. Weight 236 pounds. INTAKE AND OUTPUT: Intake of 1625 and output not documented. HEENT Examination of head, eyes, ears, nose and throat: Pupils are reactive. Conjunctivae are pink. Sclerae are white. NECK: Supple. Trachea is central. CHEST: Bilateral breath sounds clear to auscultation. HEART: Rhythm regular. S1 and S2 normal. ABDOMEN: Bowel sounds present. Soft and pendulous. EXTREMITIES: No edema. NEUROLOGIC EXAMINATION: Cranial nerves are intact. No motor or sensory impairment. Patellar reflex 2+ and plantar flexor. CURRENT MEDICATIONS: Pepcid 20 mg daily and Lovenox 40 subcutaneous daily. LABORATORY DATA: WBC is 6, hemoglobin is 11.5, hematocrit is 34.4, and platelet count of 256. SMA-7: Sodium of 142, potassium of 3.5, chloride of 105, CO2 of 23, blood urea nitrogen of 6, creatinine of 0.8, random glucose of 97, and calcium of 8.8. Urinalysis is negative. Toxicology screen is positive for cannabinoids. Microbiology; none reported. DIAGNOSTIC DATA: Electrocardiogram normal sinus rhythm, normal electrical axis and no ST-T changes. IMPRESSION AND PLAN: Status post drug overdose on Lamictal, history of bipolar disorder, and hemodynamically stable. No electrolyte abnormalities. No further cardiac arrhythmias and normotensive. She can be transferred to Adult Psychiatric floor for admission evaluation and treatment for her underlying anxiety, depression/bipolar disorder. Olvin Espino MD [facility] # [id number]
== END 2017-05-23 11:00 | DRG 918 ==
LOC: H.ER 00:24 → H.ERHOLD 03:09 → H.ICU/CCU 14:18
PROVIDERS: ADMIT Internal Medicine; ATTEND Internal Medicine
DX: T42.6X2A Poisoning by other antiepileptic and sedative-hypnotic drugs, intentional self-harm, initial encounter (principal); F12.90 Cannabis use, unspecified, uncomplicated; F41.9 Anxiety disorder, unspecified; F31.9 Bipolar disorder, unspecified; Z91.14 Patient's other noncompliance with medication regimen; Z88.0 Allergy status to penicillin

== ENCOUNTER 2017-05-23 10:51 | Inpatient (IN) | payer BC, MEDICAID ==
[2017-05-23 11:08] VITALS: BMI 35.9
[2017-05-23] MEDS ORDERED: Alum-Mag Hydrox-Simethicone Susp (30 mL) PO PRN (11:43)
[2017-05-23] MEDS ORDERED: DiphenhydrAMINE 50 mg/ml Inj IM PRN (11:43)
[2017-05-23] MEDS ORDERED: Magnesium Hydroxide Susp 30 ml UD PO PRN (11:43)
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
--- NOTE | 2017-05-24 01:28 | PCM.BM ---
<Tonja Herman Brittani - Last Filed: 05/24/17 01:26> Treatment Plan Problems - Problems identified on initial assessmt Hopelessness/Helplessness Date Initiated: 05/23/17 Time Initiated: 21:00 Assessment reference: NA Status: Active Treatment assets and liabiliti Patient Assests: adapts well, cooperative, educated, motivated, self-reliant, ADL independent, physically healthy, good support system, negotiates basic needs , cognitively intact, good interpersonal skills Patient Liabilities: relationship conflicts - Milieu Protocol Maintain good personal hygiene: daily Encourage regular showers, every shift Remind patient to perform daily oral care Conduct patient checks and document Observation sheet: Q15 minutes Maintain personal safety: every shift Educate patient to report safety concerns to staff, every shift Monitor environment for contraband/sharps Medication safety: Monitor for expected outcome, potential side effects: every shift, Assess barriers to learning: every shift, Assess readiness for medication education: every shift Milieu Narrative: start abilify 2mg bid with plan to uptitrate CBT group and supportive therapy Discharge/Continuing Care - Treatment Team Participation Patient/Family/SO Statement: start abilify 2mg bid with plan to uptitrate CBT group and supportive therapy <Debbie Bagley - Last Filed: 05/24/17 15:53> Treatment assets and liabiliti Patient Assests: adapts well, cooperative, educated, motivated, self-reliant, ADL independent, physically healthy, good support system, cognitively intact, good interpersonal skills Patient Liabilities: relationship conflicts, other (noncompliance) Family Contact Family involvement: Family/SO is involved Family contact: Patient agrees to contact - Goals for Treatment Patient goals for treatment: Patient to continue stabilization on 3NP through medication management and group/supportive therapy. Patient to be encouraged to attend groups regularly to promote self-awareness, compliance, and improve insight, coping skills and self-esteem. Patient to be provided with referral for appropriate level of aftercare to reduce risk of future hospitalizations and ensure safety in the community. Discharge/Continuing Care - Education Needs Education Needs: Family Medication, Family Coping Skills, Family Community resources, Family Aftercare Safety Plan, Patient Medication, Patient Coping Skills, Patient Anger Management skills, Patient Community resources, Patient Aftercare Safety Plan - Discharge Discharge Criteria: Tolerates medication w/o severe side effects, Free of Suicidal thoughts, Normal sleep pattern, Ability to care for self, Reduction of target symptoms Discharge to:: Home, With Family - Treatment Team Participation Patient/Family/SO Statement: 05/24/17 15:54 Pt. was brought into tx team this morning to discuss progress on 3NP and aftercare. Pt reports improvement in sxs of depression and anxiety since admission. Pt. continues to present as depressed and somewhat socially withdrawn. Medication management and aftercare options discussed at length. Pt. denies side effects and expressed being motivated for tx upon discharge. No harmful behaviors noted. Discussed with Family/SO: No Was Patient/Family/SO present at Treatment Team Meeting: Yes <Myesha Amador - Last Filed: 05/25/17 12:13> - Diagnosis (1) Depression Status: Acute Interventions: psychotherapy, pharmacotherapy 05/24/17 14:17
[2017-05-24 07:09] LABS: BASO % 0.6 % (0.0-2.0); EOS # 0.2 K/uL (0.0-0.7); EOS % 2.8 % (0.0-4.0); HEMOGLOBIN 12.4 g/dL (12.0-16.0); LYMPH # 2.9 K/uL (1.0-4.3); LYMPH % 47.2 % (20.0-40.0); MEAN CELL VOLUME 82.1 fl (81.0-99.0); MEAN CORPUSCULAR HEMOGLOBIN 28.1 pg (27.0-31.0); MEAN CORPUSCULAR HGB CONC 34.2 g/dL (33.0-37.0); MEAN PLATELET VOLUME 9.1 fl (7.2-11.7); MONO # 0.5 K/uL (0.0-0.8); MONO % 8.6 % (0.0-10.0); NEUT # 2.5 K/uL (1.8-7.0); NEUT % 40.8 % (50.0-75.0); NRBC % 0.1 % (0.0-0.0); RBC 4.42 Mil/uL (3.80-5.20); RED CELL DISTRIBUTION WIDTH 14.3 % (11.5-14.5); WHITE BLOOD COUNT 6.2 K/uL (4.8-10.8)
[2017-05-24 07:22] LABS: ALB/GLOB RATIO 1.1 (1.0-2.1); ALT/SGPT 30 U/L (9-52); AST/SGOT 22 U/L (14-36); BLOOD UREA NITROGEN 12 mg/dl (7-17); CALCIUM 9.6 mg/dL (8.4-10.2); GFR AFRICAN-AMERICAN > 60; GFR NON-AFRICAN AMERICAN > 60; HDL CHOLESTEROL 37 MG/DL (30-70)
[2017-05-24 07:29] LABS: LDL CHOLESTEROL 85 mg/dL (0-129)
[2017-05-24 09:30] LABS: T4 11.1 ug/dl (5.5-11.0)
--- NOTE | 2017-05-24 14:38 | PCM.PYCHPN ---
Psychiatric Progress Note - Psychiatric Progress Note Patient seen today, length of contact: pt evaluated discussed with team chart reviewed Patient Chief Complaint: I need to learn coping skills with my anger Problems Identified/Issues Discussed: pt evaluated with treatment team,pt reported feeling depressed as she has been unemployed and she has been in break from school, started to feel like a burden on her parents, pt reported frequent episodes of anger due to her depression with inability to develop coping skills with her anger discussed with pt the need to participate in outpatient therapy on discharge, also discussed increasing the dose of abilify to 5mg daily for depression mood stabilization and impulse control, pt denied any current side effects, denied suicidal or homicidal ideations, denied perceptual disturbances denied any current thoughts of self harm DSM 5 Symptoms Update: bipolar II disorder depressed/ borderline personality disorder Medication Change: Yes (increase abilify to 5mg daily) Medical Record Reviewed: Yes Mental Status Examination - Cognitive Function Orientation: Person, Place Attention: WNL Concentration: WNL Association: WNL Fund of Knowledge: WN Decription of patient's judgement and insights: good insight, fair judgment - Mood Mood: Depressed, Anxious - Affect Affect: Constricted - Speech Speech: Soft - Formal Thought Process Formal Thought Process: No Impairment, Circumstantial Psychotic Thoughts and Behaviors: pt denied perceptual disturbances, non elicited - Suicidal Ideation Suicidal Ideation: No - Homicidal Ideation Homicidal Ideation: No Goal/Treatment Plan - Goal/Treatment Plan Need for Continued Stay: Severe depression anxiety, Discharge may exacerbated symptoms Progress Toward Problem(s) and Goals/Treatment Plan: increase abilify to 5mg daily CBT group and supportive therapy follow up on psychopharmacological effects and side effect profile Estimated Date of D/C: 05/26/17
[2017-05-25 09:19] VITALS: RESP 18
--- NOTE | 2017-05-25 13:55 | PCM.PYCHPN ---
Psychiatric Progress Note - Psychiatric Progress Note Patient seen today, length of contact: pt evaluated discussed with team chart reviewed Patient Chief Complaint: I am feeling better today Problems Identified/Issues Discussed: pt evaluated , presented with brighter affect reported better mood and presenting with brighter affect , pt able to verbalize coping skills with stress , agreed to join outpatient therapy on discharge pt denied any current side effectsof medications, denied suicidal or homicidal ideations, denied perceptual disturbances denied any current thoughts of self harm DSM 5 Symptoms Update: bipolar ii disorder borderline personality disorder Medication Change: No Medical Record Reviewed: Yes Mental Status Examination - Cognitive Function Orientation: Person, Place Attention: WNL Concentration: WNL Association: [facility] Fund of Knowledge: [facility] Decription of patient's judgement and insights: good insight, fair judgment - Mood Mood: Neutral - Affect Affect: Constricted - Formal Thought Process Formal Thought Process: No Impairment, Circumstantial Psychotic Thoughts and Behaviors: pt denied perceptual disturbances, non elicited - Suicidal Ideation Suicidal Ideation: No - Homicidal Ideation Homicidal Ideation: No Goal/Treatment Plan - Goal/Treatment Plan Need for Continued Stay: Severe depression anxiety, Discharge may exacerbated symptoms Progress Toward Problem(s) and Goals/Treatment Plan: abilify 5mg daily CBT group and supportive therapy follow up on psychopharmacological effects and side effect profile Estimated Date of D/C: 05/26/17
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
[2017-05-26 09:08] VITALS: BP 141/86; PULSE 74; TEMP 97.3
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
== END 2017-05-26 14:40 | disposition home or self-care (01) | DRG 883 ==
LOC: H.PSYCH 11:08
PROVIDERS: ADMIT Psychiatry & Neurology Psychiatry; ATTEND Psychiatry & Neurology Psychiatry
PROC: GZHZZZZ Group Psychotherapy (ICD-10-PCS; principal; 2017-05-23)
PROC: GZ58ZZZ Individual Psychotherapy, Cognitive-Behavioral (ICD-10-PCS; 2017-05-23)
PROC: GZ56ZZZ Individual Psychotherapy, Supportive (ICD-10-PCS; 2017-05-23)
DX: F60.3 Borderline personality disorder (principal); R45.851 Suicidal ideations; F31.81 Bipolar II disorder; Z91.14 Patient's other noncompliance with medication regimen; Z91.19 Patient's noncompliance with other medical treatment and regimen; Z88.0 Allergy status to penicillin; F17.200 Nicotine dependence, unspecified, uncomplicated